=== PATIENT | female | born 1945 | race African-American/Black ===

== ENCOUNTER 2017-09-03 15:50 | Emergency (ER) | payer OTHER, MEDICAID ==
[~2017-09-03] VITALS: Ht 154.9 cm; Wt 98.9 kg
[2017-09-03 19:20] VITALS: BP 184/103
[2017-09-03] MEDS ORDERED: KETOROLAC TROMETH 60MG/2ML VIAL IM ONE (19:30)
[2017-09-03] MEDS ORDERED: cloNIDine HCL 0.1 MG TAB PO ONE (19:30)
[2017-09-03] MEDS ORDERED: SUMAtriptan SUCCINATE 6 MG/0.5 ML VL SC ONE (19:30)
== END 2017-09-03 20:21 | disposition home or self-care (01) ==
LOC: ER 16:01
DX: G43.909 Migraine, unspecified, not intractable, without status migrainosus (principal); J45.909 Unspecified asthma, uncomplicated; I10 Essential (primary) hypertension
CPT/HCPCS: 70450; 96372; 99284; J1885; J3030